=== PATIENT | female | born 2000 | race Caucasian/White ===

== ENCOUNTER 2022-08-12 19:55 | Emergency (ER) | payer MEDICAID, MEDICARE, OTHER ==
[2022-08-12 22:05] LABS: ESTIMATED GFR 108 mL/min (>60)
== END 2022-08-12 23:53 | disposition home or self-care (01) ==
LOC: JP.ED 19:55
DX: R55 Syncope and collapse (principal); F17.210 Nicotine dependence, cigarettes, uncomplicated; Z88.2 Allergy status to sulfonamides; Z20.822 Contact with and (suspected) exposure to COVID-19; W19.XXXA Unspecified fall, initial encounter
CPT/HCPCS: 36415; 80048; 81001; 81025; 83735; 84443; 85025; 93005; 99284; U0002